=== PATIENT | female | born 1990 | race Caucasian/White ===

== ENCOUNTER → 2017-06-25 19:10 | Observation (INO) ==
--- NOTE | 2017-06-30 09:45 | OB/GYN Progress Note ---
Date of Encounter: 06/25/17 Time of Encounter: 18:00 - Assessment and Plan (1) 36 weeks gestation of Status: Acute follow up in office as scheduled. (2) NST (non-stress test) reactive on surveillance Status: Acute Baseline 135 Subjective - Subjective Interval history: Here for NST, reports good movement, denies contractions, vaginal bleeding or leaking of fluid. Antepartum ROS: movement normal, no loss of fluid, no vaginal bleeding, no contractions Objective - Exam FHR: auscultation normal FHR comments: Baseline 135 Abdomen: Present: normal appearance, soft, gravid
== END | disposition home or self-care (01) ==
LOC: 1NENULAB
PROVIDERS: ADMIT Obstetrics & Gynecology; ATTEND Obstetrics & Gynecology

== ENCOUNTER → 2017-07-08 17:20 | Observation (INO) ==
--- NOTE | 2017-07-08 14:47 | OB/GYN History & Physical ---
Date of Encounter: 07/08/17 Time of Encounter: 14:32 Assessment and Plan (1) PIH ( induced hypertension), antepartum Current visit: Yes Status: Acute bed rest external monitoring cycle blood pressures check PIH labs If abnormal labs or blood pressure does not decrease, plan for delivery (2) 38 weeks gestation of Current visit: Yes Status: Acute History of Present Illness Chief complaint: elevated BP HPI: Ms. Marcial is a 26 year old female at 38.1 weeks gestation who presents to labor and delivery due to an elevated blood pressure reading of 150/90 at her work place at the [facility] [employer] [facility]. She states that she has been feeling hot and sweaty all day long. She forgot to wear her glasses this morning, but does not think she is having any visual changes. She has been feeling more out of sorts today than normal. Reports good movement. No vaginal bleeding, discharge, or gush of fluid. Her is complicated by induced hypertension (previously well-controlled on labetalol 100 mg) and umbilical cord varix. Labs: GBS -; Hep B nonimmune; all other labs WNL blood: A+ Past Med Surg Social Fam HX - Past Medical History Medical history: no medical history Psychiatric history: no psych history - Past Surgical History Surgical History: no surgical history - Social History Smoking Status: Never smoker Smokeless Tobacco Status: No Alcohol use: none Drug use: none Occupational status: employed Current living situation: Home - Independent Activity Level: Independent ambulation Recent Out of Country Travel Within the Last 8 Weeks: No Exposure or Possible Exposure to Illness During Travel: No Obstetrical History - Pregnancies : 1 Para: 0 Term: 0 : 0 Ab's: 0 Livin Review of System OB - Constitutional Constitutional ROS IM: excessive sweating, malaise, no headache(s) - Cardiovascular Cardiovascular: no chest pain, no irregular heart rhythm - Respiratory Respiratory: no dyspnea - Gastrointestinal Gastrointestinal: no change in bowel habits, no change in stool character, no cramping, no nausea, no vomiting - Genitourinary Genitourinary: no difficulty urinating, no flank pain, no vaginal discharge - Muscloskeletal Musculoskeletal: no abnormal gait, no joint swelling, no muscle cramps - Integumentary Integumentary: no changing lesions, no lesions, no new lesions, no rash - Neurological Nerological: no abnormal gait, no abnormal movements, no abnormal speech, no convulsions - Psychiatric Psychiatric: no difficulty concentrating, no hallucinations, no homicidal ideation, no panic attacks - Endocrine Endocrine: excessive sweating, fatigue, flushing - Hematologic/Lymphatic Hematologic/Lymphatic: no easy bleeding, no easy bruising - Allergic/Immunologic Allergic/Immunologic: no tongue swelling, no throat swelling Exam - Constitutional Constitutional: well developed, well nourished, no acute distress, average body habitus - HEENT HEENT: Normocephaly, Mucus Membranes Moist - Neck Neck exam: normal inspection - Lungs Respiratory exam: CTAB - Cardiovascular Cardiovascular exam: RRR, +S1, +S2 - Abdomen Abdomen: Present: bowel sounds normal, gravid, non tender Results Result Diagrams: 07/08/17 15:00 All other labs normal.
[2017-07-08 15:09] LABS: Basophils % 0.3 %; Eosinophils # 0.1 K/mcL (0.0-0.6); Eosinophils % 0.6 %; Hematocrit 40.8 % (35.3-44.9); Hemoglobin 13.5 g/dL (11.5-15.4); Immature Granulocytes % 1.1 % (0-4); Lymphocytes # 1.8 K/mcL (0.6-4.6); Mean Corpuscular HGB Conc 33.1 g/dL (31.6-35.5); Mean Corpuscular Hemoglobin 27.8 pg (28.0-33.3); Mean Platelet Volume 10.5 fL (9.4-12.4); Monocytes # 0.8 K/mcL (0.0-1.3); Monocytes % 7.5 %; Neutrophils # 8.2 K/mcL (1.6-8.9); Platelet Count 232 K/mcL (140-400); Red Blood Count 4.86 M/mcL (3.82-4.97); Red Cell Distribution Width 15.7 % (11.5-14.5); Segmented Neutrophils % 74.5 %
[2017-07-08 15:30] LABS: Alanine Aminotransferase 13 Units/L (7-52); Aspartate Amino Transferase 12 Units/L (13-39); BUN/Creatinine Ratio 19 (6-26); Blood Urea Nitrogen 12 mg/dL (6-20); Lactate Dehydrogenase 155 Units/L (140-271); Uric Acid 4.1 mg/dL (2.3-7.6); eGFR For African Americans > 60 (> 60); eGFR For Non-African Americans > 60 (> 60)
[2017-07-08 16:32] LABS: Amphetamine Screen,Urine Negative ng/mL (Cutoff=1000); Barbiturate Screen,Urine Negative ng/mL (Cutoff=200); Benzodiazepines Screen,Urine Negative ng/mL (Cutoff=200); Cannabinoid Screen,Urine Negative ng/mL (Cutoff = 50); Cocaine Screen,Urine Negative ng/mL (Cutoff= 300); Opiate Screen,Urine Negative ng/mL (Cutoff=300); Phencyclidine Screen,Urine Negative ng/mL (Cutoff=25)
[2017-07-08 17:02] LABS: Protein/Creatinine Ratio,Urine 0.12 mg/mg (0.00-0.20)
== END | disposition home or self-care (01) ==
LOC: 1NENULAB
PROVIDERS: ADMIT Obstetrics & Gynecology; ATTEND Obstetrics & Gynecology

== ENCOUNTER 2017-07-11 15:31 | Observation (INO) ==
--- NOTE | 2017-07-11 15:10 | OB/GYN History & Physical ---
Date of Encounter: 07/11/17 Time of Encounter: 15:05 Assessment and Plan (1) 38 weeks gestation of Current visit: No Status: Acute external monitoring check for cervix progression cycle blood pressure History of Present Illness Chief complaint: labor eval HPI: Ms. Marcial is a 26 year old female at 38.4 weeks gestation here today for a labor evaluation. She was 4-5 cm dilated, 70% effaced, and -2 station 2 days ago in the office on 07/09. Today, she has been having much more pressure in her bottom and some sharp pelvic pain. She has been having regular back pains that are different than previous and do not go away with walking. Denies headache, visual changes, nausea, vaginal fluid loss. Her has been complicated by chronic HTN (controlled with labetalol 100 mg BID) and umbilical cord varix. She was seen at L&D on 07/08 for PIH evaluation due to elevated BP at work and had normal BP and labs at L&D. Labs: GBS -; Hep B nonimmune; all other labs WNL blood: A+ Past Med Surg Social Fam HX - Past Medical History Medical history: no medical history Psychiatric history: no psych history - Past Surgical History Surgical History: no surgical history - Social History Smoking Status: Never smoker Smokeless Tobacco Status: No Alcohol use: none Drug use: none - Family History Father Adopted: No Living Status: Still Living Hx Family Cardiac Disorders: No Hx Family Respiratory Disorders: No Hx Family Cancer: No Hx Family GI Disorders: No Hx Family Genitourinary Disorders: No Hx Family Endocrine Disorder: No Hx Family Musculoskeletal Disorders: No Hx Family Neuromuscular Disorders: No Hx Family Neurologic Disorders: No Hx Family HEENT Disorders: No Hx Family Autoimmune Disorders: No Hx Family Reproductive Disorders: No Hx Family Psychosocial Disorders: No Hx Family Medical Disorders: No Medications and Allergies Labetalol HCl 100 mg PO BID 07/08/17 [History] Drm700/Iron Fumarate/FA/Dss [ 19 Tablet] 1 each PO DAILY 07/08/17 [ History] 3 Allergy/AdvReac Type Severity Reaction Status Date / Time azithromycin [From Zithromax] Allergy Hives Verified 07/08/17 15:20 Review of System OB - Constitutional Constitutional ROS IM: no headache(s), no malaise - Cardiovascular Cardiovascular: edema, no chest pain - Respiratory Respiratory: no dyspnea, no wheezing - Gastrointestinal Gastrointestinal: no change in bowel habits, no change in stool character, no constipation, no nausea, no vomiting - Genitourinary Genitourinary: no dysuria - Neurological Nerological: no abnormal gait, no behavioral changes, no headache(s) - Psychiatric Psychiatric: no auditory hallucinations, no behavioral changes, no difficulty concentrating, no hallucinations Exam - Constitutional Constitutional: well developed, well nourished, no acute distress, average body habitus - HEENT HEENT: Normocephaly, Mucus Membranes Moist - Lungs Respiratory exam: CTAB - Cardiovascular Cardiovascular exam: RRR, +S1, +S2 - Abdomen Abdomen: Present: bowel sounds normal, gravid - Cervix Dilation: 5 Effacement: 80 Station: -1 Results All other labs normal. - Attending Attestation I examined this patient and my medical decision-making was reviewed with the Resident Physician. I agree with the documented findings, disposition and treatment plan as described. Rubi Blum CNM
[2017-07-11] MEDS ORDERED: *HR* Morphine 10 MG/ML VIAL SQ ONE (22:17)
[2017-07-11] MEDS ORDERED: *HR* Promethazine 25 MG/ML VIAL IM ONE (22:18)
--- NOTE | 2017-07-11 22:24 | Event Note ---
Date of Encounter: 07/11/17 Time of Encounter: 22:22 Patient has not made cervical change, but has increased pain. Will give morphine and phenergan for therapeutic rest and recheck patient in morning. Will need monitoring while in bed.
--- NOTE | 2017-07-12 06:46 | Event Note ---
Date of Encounter: 07/12/17 Time of Encounter: 06:44 Patient has still not made cervical change. Plan to discharge home after document of reactive monitoring strip this AM. Patient to return to L&D with increase in contraction intensity, rupture of amniotic membranes, or Wednesday morning (07/14/2017) for scheduled induction.
== END 2017-07-12 07:35 | disposition home or self-care (01) ==
LOC: 1NENULAB
PROVIDERS: ADMIT Obstetrics & Gynecology; ATTEND Obstetrics & Gynecology

== ENCOUNTER 2017-07-13 06:14 | Inpatient (IN) ==
[2017-07-13 06:00] LABS: Basophils % 0.4 %; Eosinophils # 0.1 K/mcL (0.0-0.6); Hemoglobin 13.9 g/dL (11.5-15.4); Lymphocytes % 19.6 %; Mean Corpuscular HGB Conc 33.1 g/dL (31.6-35.5); Mean Corpuscular Hemoglobin 27.6 pg (28.0-33.3); Mean Corpuscular Volume 83.5 fL (83.0-100.0); Mean Platelet Volume 10.5 fL (9.4-12.4); Monocytes # 0.7 K/mcL (0.0-1.3); Monocytes % 7.1 %; Neutrophils # 7.4 K/mcL (1.6-8.9); Platelet Count 233 K/mcL (140-400); Red Blood Count 5.03 M/mcL (3.82-4.97); Red Cell Distribution Width 15.9 % (11.5-14.5); Segmented Neutrophils % 70.9 %
[2017-07-13 06:14] LABS: Amphetamine Screen,Urine Negative ng/mL (Cutoff=1000); Barbiturate Screen,Urine Negative ng/mL (Cutoff=200); Benzodiazepines Screen,Urine Negative ng/mL (Cutoff=200); Cannabinoid Screen,Urine Negative ng/mL (Cutoff = 50); Cocaine Screen,Urine Negative ng/mL (Cutoff= 300); Opiate Screen,Urine Positive ng/mL (Cutoff=300); Phencyclidine Screen,Urine Negative ng/mL (Cutoff=25)
[~2017-07-13 06:14] MED LIST: Famotidine 20 MG/2 ML VIAL IVP PRN; Metoclopramide 10 MG/2 ML VIAL IVP PRN; Naloxone 0.4 MG/ML INJ IVP PRN; Ondansetron 4 MG/2 ML VIAL IVP PRN; Ringers Solution, Lactated 1,000 ML IVC SCH; Ringers Solution, Lactated 1,000 ML ONE
[2017-07-13 06:19] LABS: Alanine Aminotransferase 14 Units/L (7-52); Aspartate Amino Transferase 14 Units/L (13-39); BUN/Creatinine Ratio 16 (6-26); Blood Urea Nitrogen 10 mg/dL (6-20); Lactate Dehydrogenase 147 Units/L (140-271); Uric Acid 4.3 mg/dL (2.3-7.6); eGFR For African Americans > 60 (> 60); eGFR For Non-African Americans > 60 (> 60)
--- NOTE | 2017-07-13 06:44 | OB/GYN History & Physical ---
Date of Encounter: 07/13/17 Time of Encounter: 06:32 Assessment and Plan (1) Rupture of membranes with clear amniotic fluid Current visit: Yes Status: Acute external monitoring start pitocin nubain/epidural PRN IVF expect spontaneous vaginal delivery (2) 38 weeks gestation of Current visit: No Status: Acute History of Present Illness Chief complaint: rupture of membranes HPI: Ms. Marcial is a 26 year old female at 38.6 weeks gestation here today rupture of membranes. She was sleeping in a chair last night and her water broke around 4:30am. She is feeling contractions but is not uncomfortable. Denies headache, visual changes, nausea. Her has been complicated by chronic HTN (controlled with labetalol 100 mg BID) and umbilical cord varix. 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 Labs: GBS -; Hep B nonimmune; all other labs WNL blood: A+ Past Med Surg Social Fam HX - Past Medical History Medical history: no medical history Psychiatric history: no psych history - Past Surgical History Surgical History: no surgical history - Social History Smoking Status: Never smoker Smokeless Tobacco Status: No Alcohol use: none Drug use: none - Family History Father Adopted: No Living Status: Still Living Hx Family Cardiac Disorders: No Hx Family Respiratory Disorders: No Hx Family Cancer: No Hx Family GI Disorders: No Hx Family Genitourinary Disorders: No Hx Family Endocrine Disorder: No Hx Family Musculoskeletal Disorders: No Hx Family Neuromuscular Disorders: No Hx Family Neurologic Disorders: No Hx Family HEENT Disorders: No Hx Family Autoimmune Disorders: No Hx Family Reproductive Disorders: No Hx Family Psychosocial Disorders: No Hx Family Medical Disorders: No Obstetrical History - Pregnancies : 1 Para: 0 Term: 0 : 0 Ab's: 0 Livin Medications and Allergies Labetalol HCl 100 mg PO BID 07/08/17 [History] Qid642/Iron Fumarate/FA/Dss [ 19 Tablet] 1 each PO DAILY 07/08/17 [ History] 3 Allergy/AdvReac Type Severity Reaction Status Date / Time azithromycin [From Zithromax] Allergy Hives Verified 07/13/17 05:41 Exam - Constitutional Constitutional: well developed, well nourished, no acute distress, average body habitus - HEENT HEENT: Normocephaly - Lungs Respiratory exam: CTAB - Cardiovascular Cardiovascular exam: RRR, +S1, +S2 - Abdomen Abdomen: Present: bowel sounds normal - Cervix Dilation: 6 Effacement: 80 Station: -1 Results Result Diagrams: 07/13/17 05:35 07/13/17 05:35 Abnormal lab results RBC 5.03 M/mcL (3.82-4.97) H 07/13/17 05:35 MCH 27.6 pg (28.0-33.3) L 07/13/17 05:35 RDW 15.9 % (11.5-14.5) H 07/13/17 05:35 Urine Opiates Screen Positive ng/mL ([id number]) H 07/13/17 05:35 All other labs normal. - VTE Reasons for not Prescribing Prophylaxis: Treatment not Indicated - Low risk for VTE
[2017-07-13] MEDS ORDERED: Oxytocin 20 units/ LR 1000 mL 20 UNIT/1,000 ML BAG IVC SCH ×2 (07:15→22:11)
--- NOTE | 2017-07-13 08:30 | Anesthesia Evaluation PreOp ---
Date of Encounter: 07/13/17 Time of Encounter: 08:28 - Past History Planned Operation: caitlin Cardiac History: HTN Pulmonary History: Denies Any Significant HX BAFFLE MOUNTER History: Denies Any Significant HX Other Medical History: GERD, Other (neimann-pick carrier) Anesthesia History: No Prior Anesthetic Complications : Yes Test: Positive Alcohol Use: none Drug use: none Medications and Allergies Labetalol HCl 100 mg PO BID 07/08/17 [History] Bxr256/Iron Fumarate/FA/Dss [ 19 Tablet] 1 each PO DAILY 07/08/17 [ History] 3 Allergy/AdvReac Type Severity Reaction Status Date / Time azithromycin [From Zithromax] Allergy Hives Verified 07/13/17 05:41 - Meds/Allergy Pre-op Review Medications Reviewed: Yes Allergies Reviewed: Yes Beta Blockers on Current Med List: Yes If Beta Blockers taken, Date/Time (Last Dose taken): 07/12 99 Anesthesia Results - Labs 07/13/17 05:35 07/13/17 05:35 Anesthesia Exam 132/68 90 16 fht 151 Height: 5'3" Weight: 94 kg NPO (# of Hours): 8 Pain Scale: 5 Pain Scale Used: Numeric (1 - 10) - HEENT Pupil (Motor): Pupils equal Mallampati: II Teeth: Normal Oral Opening: Greater than 3 - BAFFLE MOUNTER LOC: Oriented BAFFLE MOUNTER Motor: Normal RUE, Normal LUE, Normal RLE, Normal LLE, Normal Face BAFFLE MOUNTER Sensory: Normal: RUE, LUE, RLE, LLE, Face - Cardiac Rhythm: Regular Murmur: None - Pulmonary Breath Sounds: bilateral Clear Respiratory Effort: Symmetrical Anesthesia Assess/Plan ASA Score: 2 Modified Daniela Scale for Level of Consciousness: Cooperative, oriented, and tranquil Anesthetic Plan: Regional (risks discussed, questions answered, consented) Autologous Blood: No Monitoring Plan: Standard Monitors Recovery Plan: Other
[2017-07-13] MEDS ORDERED: *HR* Ropivacaine/PF 0.2% 20 ML VIAL EP ONE (08:32)
[2017-07-13] MEDS ORDERED: *HR* FentaNYL (PF) 100 MCG/2 ML VIAL EP ONE (08:32)
[2017-07-13] MEDS ORDERED: *HR* Ropivacaine/PF 0.2% 20 ML VIAL ONE (08:39)
[2017-07-13] MEDS ORDERED: Epidural Premix (fent/bupiv) 110 ML EP SCH (08:45)
[2017-07-13] MEDS ORDERED: Epidural Premix (fent/bupiv) 110 ML EP ONE ×2 (08:54→15:37)
--- NOTE | 2017-07-13 09:18 | Anesthesia Procedures ---
Date of Encounter: 07/13/17 Time of Encounter: 09:15 Procedures: Anesthesia - Epidural/Spinal Patient ID/Chart reviewed: Yes Patient examined: Yes OB Eval: Gestational age: 38.6 OB Eval: : 1 OB Eval: Hx Para: 0 OB Eval: Dilated at (cm): 6 OB Eval: Contractions: Non-stressed pattern Consent Obtained: Yes Supplemental Oxygen: None/Room Air Site Prep: Aseptic Technique, Sterile prep and drape, 0.5% Chlorhexidine/Alcohol Patient position: upright Local Anesthetic: Lidocaine 1% Amount of Local Anesthetic used: 5 Touhy Needle Gauge: 18 Touhy Needle Depth (cm): 8 Catheter Depth at Skin (cm): 18 Test Dose (1.5% Lido + Epi): Volume given (mls): 3 Test Dose Result: Negative Loading Dose: Fentanyl (mcg): 100 Loading Dose: Other: ropivicaine 0.2% 10 cc Loading Dose Administered: Thru Touhy Needle Infusion Med: 0.125% Bupivacaine w/ 2 mcg/ml Fentanyl Infusion Rate (mls/hr): 15 (pcea 5 cc q30") Catheter Secured in Place: Tegaderm Interspace Used: L2-L3 Loss of Resistance (SÁNCHEZ): Yes Blood: No CSF: No Paresthesia: No Procedure: aseptic, raymond well, effective Vitals + FHT's: 122/76 96 16 fht 130
--- NOTE | 2017-07-13 12:38 | OB Labor Progress Note ---
Date of Encounter: 07/13/17 Time of Encounter: 12:36 Labor Progress Note - Subjective Subjective: Pt resting comfortably after epidural placement. Reports slight nausea but doesn 't request intervention at this time. - Cervix Cervix: 6/90/-1 - Heart Tones Heart Tones: 140 bpm, moderate variability, + 15x15 accels, no decels. - [place]: 2-3 min - Interventions Interventions: SVE IUPC placed without difficulty - Plan Plan: Continue labor management. Increase Pitocin as needed. Anticipate
--- NOTE | 2017-07-13 13:18 | OB Labor Progress Note ---
Date of Encounter: 07/13/17 Time of Encounter: 13:16 Labor Progress Note - Subjective Subjective: Pt comfortable with epidural. - Cervix Cervix: 7-8/100/-1 - Heart Tones Heart Tones: Category II, late decelerations noted at this time - [place]: Tachysystole - Interventions Interventions: Pitocin off, IV fluid bolus started. Pt repositioned to left lateral, SVE with good scalp stim. FSE placed. Oxygen started at 10 liters - Plan Plan: Continue to monitor closely. FHT improved following interventions. Will restart pitocin if needed.
--- NOTE | 2017-07-13 16:20 | OB Labor Progress Note ---
Date of Encounter: 07/13/17 Time of Encounter: 16:17 Labor Progress Note - Subjective Subjective: patient comfortable with epidural, feeling more pressure from fetus position - Cervix Cervix: 9/100/0 - Heart Tones Heart Tones: 150 with good variability - [place]: every 1-2 minutes - Interventions Interventions: right lateral with peanut ball - Plan Plan: continue to monitor anticipate
--- NOTE | 2017-07-13 20:57 | OB/GYN Procedure Note ---
Delivery - Delivery Date: 07/13/17 Provider: Lynnette Brice (Andreina Wisdom, PGY 2) Intrapartum events: other(please specify) (shoulder dystocia) Delivery induction: AROM Delivery augmentation: pitocin Delivery monitor: external FHT, external uterine, internal FHT, internal uterine Anesthesia: epidural Estimated Blood Loss: 200 - (s) Infant A Delivery Date: 07/13/17 Delivery Time: 20:35 Presentation: vertex Position: ARMANDO Route of delivery: Gender: Male Viability: Viable Pounds: 6 Ounces: 14 Weight Gram: 3115 kg at 1 minute: 2 at 5 mins: 8 Shoulder Dystocia: encountered Shoulder Dystocia Maneuvers: Michelle maneuver, suprapubic pressure Shoulder dystocia time elapsed: 2 minutes Specimens collected: venous cord gases, arterial cord gases Placenta: spontaneous Cord: 3 umbilical vessels - Repair Episiotomy: none Laceration Description: Perineal - 2nd Degree - Complications Delivery complications: none Delivery comments: Pt progressed normally to complete dilation. She pushed effectively to [facility] for viable male weighing 6lbs. 14oz. Immediately following delivery of head a turtle sign was noted. McRobert's maneuver and suprapubic pressure were initiated. At this time Dr. Franz was called and I stepped in to assist Dr. Wisdom with rotational maneuvers. The dystocia did not resolve with McRobert 's and suprapubic pressure. At this time the patient was instructed to stop pushing. Deliver of the posterior arm was attempted but unsuccessful. Gentle pressure was then applied to the posterior aspect of the left shoulder to rotate the fetus to OP and then ARMANDO position. At this time the shoulder was released and the was delivered under maternal expulsive effort only. Approximately 30 seconds after delivery the cord was clamped and cut and the infant was handed off to nursery staff in attendance. The placenta then delivered spontaneous and intact. A second degree perineal laceration was repaired using 2-0 Chromic. EBL 200ml. Mother stable in DR following delivery. taken to nursery for further evaluation. Cord gases were collected and are pending at the time of this report. - Disposition Mom disposition: stable in LDR disposition: taken to nursery
[2017-07-13] MEDS ORDERED: Benzocaine/Menthol 56 GM AEROSOL SPRAY TP PRN (22:11)
[2017-07-13] MEDS ORDERED: Acetaminophen 325 MG TABLET PO PRN (22:11)
[2017-07-13] MEDS ORDERED: Lanolin 7 G OINT...G. TP PRN (22:11)
[2017-07-13] MEDS ORDERED: Measles/Mumps/Rubella Vacc 0.5 ML VIAL SQ PRN (22:11)
[2017-07-14] MEDS: Ibuprofen 600 MG TABLET PO PRN ×3 (08:14→20:22)
[2017-07-14] MEDS: Prenatal Vit/FA 1 EACH TABLET PO SCH (08:14)
--- NOTE | 2017-07-14 18:10 | OB/GYN Progress Note ---
Date of Encounter: 07/14/17 Time of Encounter: 18:05 - Assessment and Plan (1) Status post vaginal delivery Current Visit: Yes Status: Acute Mom and baby are doing well. She showered this morning and has been breast-feeding baby. She reports moderate vaginal pain that is relieved with ibuprofen. --Continue ibuprofen 600 mg q6H PRN. No problems moving around hospital room, no dizziness, no problems with urination or bowel movements. Vaginal bleeding is decreased from yesterday. Plan for discharge tomorrow morning (after Ashwin's circumcision). Subjective - Subjective Principal diagnosis: s/p vaginal elivery Interval history: Patient states she is doing well, she is having vaginal pain. Her discomfort is moderate and relieved with ibuprofen. Patient reports: appetite normal, voiding normally, pain well controlled, ambulating normally : doing well Objective - Latest Vital Signs Latest vital signs: Vital Signs Temp Pulse Pulse Resp BP Pulse Ox 07/14/17 16:00 98.1 F 97 97 16 126/79 07/14/17 10:07 98.5 F 97 16 132/85 07/14/17 03:23 98.2 F 87 16 111/68 97 07/14/17 00:44 98.9 F 98 18 121/65 97 07/13/17 23:47 99.2 F 109 18 122/65 96 07/13/17 23:05 102 12 131/79 97 07/13/17 22:50 98.7 F 80 80 12 Intake and Output 07/14/17 07/14/17 07/14/17 07:59 15:59 23:59 Intake Total 600 / 600 240 / 240 Output Total 1100 / 1100 Balance -1100 / -1100 600 / 600 240 / 240 Intake: Oral 600 / 600 240 / 240 Output: Urine 1100 / 1100 Other: Meal Lunch Dinner Percent of Meal Consumed 100% 100% - Exam Lungs: bilateral: normal Chest: Normal S1, Normal S2 Extremities: Present: edema Abdomen: Present: normal appearance, soft Uterus: Present: normal, firm Uterus Position: 3 Fingers Below Umbilicus
[2017-07-15] MEDS: Ibuprofen 600 MG TABLET PO PRN ×2 (06:59→13:56)
--- NOTE | 2017-07-15 07:24 | Discharge Summary ---
Date of Encounter: 07/15/17 Time of Encounter: 07:19 - Discharge Diagnosis (1) Status post vaginal delivery Priority: Primary Status: Acute - Discharge Medications Prescriptions: Ibuprofen [Motrin] 600 mg PO Q6HR PRN #120 tablet PRN Reason: Cramping Docusate [Colace] 100 mg PO BID #60 capsule Ferrous Sulfate 325 mg PO DAILY #30 tablet Labetalol HCl 100 mg PO BID #60 tablet Iep751/Iron Fumarate/FA/Dss [ 19 Tablet] 1 each PO DAILY #30 tablet Home Medications: Docusate [Colace] 100 mg PO BID #60 capsule 07/15/17 [Rx] Ferrous Sulfate 325 mg PO DAILY #30 tablet 07/15/17 [Rx] Ibuprofen [Motrin] 600 mg PO Q6HR PRN #120 tablet 07/15/17 [Rx] Labetalol HCl 100 mg PO BID #60 tablet 07/15/17 [Rx] Xho524/Iron Fumarate/FA/Dss [ 19 Tablet] 1 each PO DAILY #30 tablet [Rx] Allergies/Adverse Reactions: 3 Allergy/AdvReac Type Severity Reaction Status Date / Time azithromycin [From Zithromax] Allergy Hives Verified 07/13/17 05:41 Data Procedures and tests throughout hospitalization: Laboratory Tests 07/13/17 07/13/17 07/13/17 05:35 05:35 05:35 WBC 10.4 RBC 5.03 H Hgb 13.9 Hct 42.0 MCV 83.5 MCH 27.6 L MCHC 33.1 RDW 15.9 H Plt Count 233 MPV 10.5 Immature Gran % 1.0 Seg Neutrophils % 70.9 Lymphocytes % 19.6 Monocytes % 7.1 Eosinophils % 1.0 Basophils % 0.4 Neutrophils # 7.4 Lymphocytes # 2.0 Monocytes # 0.7 Eosinophils # 0.1 Basophils # 0.0 BUN 10 Creatinine 0.61 Est GFR ( Amer) > 60 Est GFR (Non-Af Amer) > 60 BUN/Creatinine Ratio 16 Uric Acid 4.3 AST 14 ALT 14 Lactate Dehydrogenase 147 Urine Opiates Screen Positive H Ur Barbiturates Screen Negative Ur Phencyclidine Scrn Negative Ur Amphetamines Screen Negative U Benzodiazepines Scrn Negative Urine Cocaine Screen Negative U Marijuana (THC) Screen Negative Date of admission: 07/13/17 06:14 Primary care physician: Andreina Wisdom DO Consults: 07/13/17 22:11 Consult to Ui Developer Designer [CONS] Routine Comment: Vaginal delivery, consult needed Discharging clinician: Andreina Wisdom Anticipated date of discharge: 07/15/17 - Patient Status Disposition: Home, Self-Care Condition: Good Functional capacity at discharge: independent ambulation Overall status at discharge: patient is back to baseline - Discharge Instructions Follow Up With: Andreina Wisdom DO [Primary Care Provider] - - Diet and Activity Diet: advance to your usual diet Hospital Course Reason for admission: rupture of membranes Delivery: Episiotomy: none Laceration: 2nd degree Other procedures: none complications: none Discharge diagnosis: IUP at term delivered [place] baby: male Hospital course: - Delivery Date: 07/13/17 Provider: Lynnette Brice (Andreina Wisdom, PGY 2) Intrapartum events: other(please specify) (shoulder dystocia) Delivery induction: AROM Delivery augmentation: pitocin Delivery monitor: external FHT, external uterine, internal FHT, internal uterine Anesthesia: epidural Estimated Blood Loss: 200 - (s) A Delivery Date: 07/13/17 Delivery Time: 20:35 Presentation: vertex Position: ARMANDO Route of delivery: Gender: Male Viability: Viable Pounds: 6 Ounces: 14 Weight Gram: 3115 kg at 1 minute: 2 at 5 mins: 8 Shoulder Dystocia: encountered Shoulder Dystocia Maneuvers: Michelle maneuver, suprapubic pressure Shoulder dystocia time elapsed: 2 minutes Specimens collected: venous cord gases, arterial cord gases Placenta: spontaneous Cord: 3 umbilical vessels - Repair Episiotomy: none Laceration Description: Perineal - 2nd Degree - Complications Delivery complications: none Delivery comments: Pt progressed normally to complete dilation. She pushed effectively to [facility] for viable male weighing 6lbs. 14oz. Immediately following delivery of head a turtle sign was noted. McRobert's maneuver and suprapubic pressure were initiated. At this time Dr. Franz was called and I stepped in to assist Dr. Wisdom with rotational maneuvers. The dystocia did not resolve with McRobert 's and suprapubic pressure. At this time the patient was instructed to stop pushing. Deliver of the posterior arm was attempted but unsuccessful. Gentle pressure was then applied to the posterior aspect of the left shoulder to rotate the fetus to OP and then ARMANDO position. At this time the shoulder was released and the infant was delivered under maternal expulsive effort only. Approximately 30 seconds after delivery the cord was clamped and cut and the was handed off to nursery staff in attendance. The placenta then delivered spontaneous and intact. A second degree perineal laceration was repaired using 2-0 Chromic. EBL 200ml. Mother stable in DR following delivery. Infant taken to nursery for further evaluation. Cord gases were collected and are pending at the time of this report. - Disposition Mom disposition: stable in LDR disposition: taken to nursery Addendum entered and electronically signed by Kylee Franz MD 07/14/17 06 :56: Called to emergently attend delivery for a shoulder dystocia. On my arrival, Babs SUMNER was performing rotatioinal maneuvers for delivery. I gloved and readied to assist, at which time the shoulders were released and body of fetus completely delivered. I stayed to evaluate extent of perineal laceration and need for assistance with and maternal patient, until stable. 07/15/2017 Mother and baby doing well. She reports she is changing her pad every 4 hours, which is the same as yesterday. Her stools have changed to hard balls - colace was started. She has been having abdominal cramping, mostly brought about by breast feeding and pumping and relieved by ibuprofen. She is ready for discharge this morning after Ashwin's circumcision. Time Attestation: Total time spent providing and/or coordinating discharge services: Exam - Constitutional Vitals: Temp Pulse Resp BP Pulse Ox 97.6 F 98 14 121/81 98 07/15/17 04:00 07/15/17 04:00 07/15/17 04:00 07/15/17 04:00 07/15/17 04:00 General appearance IM: A&O X 3, answers questions appropriately - Respiratory Respiratory exam: Present: CTAB - Cardiovascular Cardiovascular exam IM: Present: RRR, +S1, +S2. Absent: clicks, gallop, rubs, systolic murmur - GI/Abdominal GI/Abdominal exam IM: soft - Uterus Position: 4 Fingers Below Umbilicus, Midline - Extremities Exam Extremities exam IM: Present: pedal edema - Neurological Exam Neurological exam: normal gait, oriented X3
[2017-07-15 08:31] VITALS: BP 128/85
[2017-07-15] MEDS: Prenatal Vit/FA 1 EACH TABLET PO SCH (09:22)
== END 2017-07-15 16:32 | disposition home or self-care (01) | DRG 560 ==
LOC: 1NENULAB → 1NENUOBS 22:13
PROVIDERS: ADMIT Advanced Practice Midwife; ATTEND Advanced Practice Midwife